=== PATIENT | female | born 1940 | race Two or more races ===

== ENCOUNTER 2016-11-17 06:09 | Day surgery (SDC) | payer MEDICARE, OTHER ==
[~2016-11-17] VITALS: Ht 160 cm; Wt 50.3 kg
[~2016-11-17 06:09] MED LIST: BP MED; LOTRIL PO; NOR5 PO; XAN1 PO; dexilant PO
[2016-11-17 06:53] VITALS: BP 139/68
[2016-11-17 09:55] VITALS: BP 103/51
== END 2016-11-17 09:40 | disposition home or self-care (01) ==
LOC: GI 06:09 → OR 08:30 → GI 09:40
PROVIDERS: Internal Medicine
PROC: 0DJD8ZZ Inspection of Lower Intestinal Tract, Via Natural or Artificial Opening Endoscopic (ICD-10-PCS; principal; 2016-11-17 08:30)
DX: K57.90 Diverticulosis of intestine, part unspecified, without perforation or abscess without bleeding (principal); I10 Essential (primary) hypertension; K21.9 Gastro-esophageal reflux disease without esophagitis; Z79.84 Long term (current) use of oral hypoglycemic drugs; Z87.891 Personal history of nicotine dependence; Z68.1 Body mass index [BMI] 19.9 or less, adult
CPT/HCPCS: 45378; J1200; J1610; J2175; J2250; J2310; J3010; J3490

== ENCOUNTER 2017-11-18 07:16 | Day surgery (SDC) | payer MEDICARE, OTHER ==
[~2017-11-18] VITALS: Ht 160 cm; Wt 51.7 kg
[~2017-11-18 07:16] MED LIST changes: +CATAPRES0.1 MG PO; +LEXAPRO10 MG PO
[2017-11-18 07:57] VITALS: BP 135/56
[2017-11-18 09:37] VITALS: BP 124/47
== END 2017-11-18 09:35 | disposition home or self-care (01) ==
LOC: GI 07:16 → OR 08:00 → GI 08:00
PROVIDERS: Internal Medicine
PROC: 0DB68ZX Excision of Stomach, Via Natural or Artificial Opening Endoscopic, Diagnostic (ICD-10-PCS; principal; 2017-11-18 08:00)
DX: K22.10 Ulcer of esophagus without bleeding (principal); K21.9 Gastro-esophageal reflux disease without esophagitis; I10 Essential (primary) hypertension; Z87.891 Personal history of nicotine dependence; Z68.20 Body mass index [BMI] 20.0-20.9, adult
CPT/HCPCS: 43235; 82962; J1200; J1610; J2250; J2310; J3010; J3490

== ENCOUNTER 2018-04-24 14:11 | Emergency (ER) | payer MEDICARE, OTHER ==
[~2018-04-24] VITALS: Ht 165.1 cm; Wt 54.4 kg
[2018-04-24 14:19] VITALS: Ht 165.1 cm; Wt 54.4 kg
[2018-04-24 15:17] LABS: BASOPHIL % 0.3 % (0-2); PLATELET COUNT 274 x10^3mcL (130-400); RED CELL DISTRIBUTION WIDTH 12.6 % (11.5-14.5)
[2018-04-24 15:22] LABS: CALCIUM 8.5 mg/dL (8.5-10.1); CARBON DIOXIDE 24.4 mmol/L (21-32); CHLORIDE SERUM 101 mmol/L (98-107); CREATININE SERUM 0.8 mg/dL (0.6-1.0); GLUCOSE SERUM 163 mg/dL (74-106); POTASSIUM SERUM 3.7 mmol/L (3.5-5.1); SODIUM SERUM 132 mmol/L (136-145)
[2018-04-24 15:34] LABS: ALKALINE PHOSPHATASE 70 U/L (46-116); ALT/SGPT 21 U/L (14-59); AMYLASE 25 U/L (25-115); AST/SGOT 21 U/L (15-37); BILIRUBIN TOTAL 0.53 mg/dL (0.20-1.00); CHOLESTEROL 137 mg/dL (<200); HDL CHOLESTEROL 49 mg/dL (40-60); LIPASE 125 IU/L (73-393); TOTAL PROTEIN, SERUM 7.2 g/dL (6.4-8.2)
[2018-04-24 15:38] LABS: ALBUMIN 3.3 g/dL (3.4-5.0)
[2018-04-24 16:02] LABS: microscopic required? NO
[2018-04-24 16:34] LABS: urine erythrocyte NEGATIVE (NEGATIVE)
[2018-04-24 17:50] VITALS: BP 167/63
== END 2018-04-24 17:50 | disposition home or self-care (01) ==
LOC: ED 14:11
PROVIDERS: Emergency Medicine
DX: R11.2 Nausea with vomiting, unspecified (principal); R10.11 Right upper quadrant pain; R10.13 Epigastric pain; I10 Essential (primary) hypertension; E11.9 Type 2 diabetes mellitus without complications; F03.90 Unspecified dementia, unspecified severity, without behavioral disturbance, psychotic disturbance, mood disturbance, and anxiety
CPT/HCPCS: 83880; J1885; J7030; Q0092

== ENCOUNTER 2019-06-08 12:23 | Emergency (ER) | payer MEDICARE, OTHER ==
[~2019-06-08] VITALS: Ht 152.4 cm; Wt 47.2 kg
[2019-06-08 12:35] VITALS: Ht 152.4 cm; Wt 47.2 kg
[2019-06-08 13:35] LABS: BASOPHIL % 0.1 % (0-2); PLATELET COUNT 391 x10^3mcL (130-400); RED CELL DISTRIBUTION WIDTH 13.4 % (11.5-14.5)
[2019-06-08 14:07] LABS: CALCIUM 8.6 mg/dL (8.5-10.1); CHLORIDE SERUM 103 mmol/L (98-107); CREATININE SERUM 0.8 mg/dL (0.6-1.0); GLUCOSE SERUM 232 mg/dL (74-106); POTASSIUM SERUM 4.1 mmol/L (3.5-5.1); SODIUM SERUM 141 mmol/L (136-145)
[2019-06-08 14:12] LABS: ALBUMIN 3.3 g/dL (3.4-5.0); ALKALINE PHOSPHATASE 75 U/L (46-116); ALT/SGPT 18 U/L (14-59); AST/SGOT 9 U/L (15-37); BILIRUBIN TOTAL 0.16 mg/dL (0.20-1.00); TOTAL PROTEIN, SERUM 7.9 g/dL (6.4-8.2)
[2019-06-08 15:18] LABS: microscopic required? NO
[2019-06-08 15:22] LABS: urine erythrocyte NEGATIVE (NEGATIVE)
[2019-06-08 16:14] VITALS: BP 122/71
== END 2019-06-08 16:41 | disposition home or self-care (01) ==
LOC: ED 12:23
PROVIDERS: Emergency Medicine
DX: E11.621 Type 2 diabetes mellitus with foot ulcer (principal); L03.116 Cellulitis of left lower limb; I10 Essential (primary) hypertension
CPT/HCPCS: J2543; Q0092

== ENCOUNTER 2019-06-21 21:33 | Emergency (ER) | payer OTHER, MEDICARE ==
[~2019-06-21] VITALS: Ht 157.5 cm; Wt 61.2 kg
[2019-06-21 21:43] VITALS: BP 177/81; Ht 157.5 cm; Wt 61.2 kg
== END 2019-06-21 23:46 | disposition home or self-care (01) ==
LOC: ED 21:33
DX: S00.511A Abrasion of lip, initial encounter (principal); F03.90 Unspecified dementia, unspecified severity, without behavioral disturbance, psychotic disturbance, mood disturbance, and anxiety; I10 Essential (primary) hypertension; E11.9 Type 2 diabetes mellitus without complications; X58.XXXA Exposure to other specified factors, initial encounter; Y93.89 Activity, other specified; Y92.89 Other specified places as the place of occurrence of the external cause; Y99.8 Other external cause status
CPT/HCPCS: Q0092